=== PATIENT | female | born 1995 | race Caucasian/White ===

== ENCOUNTER 2016-10-04 18:53 | Emergency (ER) | payer OTHER ==
[2016-10-04 19:35] VITALS: TEMP 97.8
--- NOTE | 2016-10-04 21:33 | ED ---
Abdominal Pain HPI - General Chief Complaint: Abdominal Pain Stated Complaint: left side pain Time Seen by Provider: 10/04/16 20:55 Source: patient, RN notes reviewed Mode of arrival: ambulatory Limitations: no limitations - History of Present Illness Initial Comments: Patient is a 21-year-old female since emergency room for evaluation of abdominal pain. Patient is 17 weeks . Patient states that she was evaluated by her senior underwriter on 10/02/16. Patient states she began developing left lower quadrant pain on that same day. Patient states pain is getting worse. Patient states she has a confirmed IUP July. Patient denies vaginal bleeding. Patient states she can still feel her baby kicking. Patient has nausea vomiting. Patient denies fevers or chills. Patient has any pain or burning during urination, trouble urinating or blood in urine. Patient denies any recent falls or trauma to the left lower quadrant. Patient denies any constipation or diarrhea. Patient states the pain is worse when she sitting up or walking. - Related Data Home Medications Medication Instructions Recorded Confirmed Acetaminophen Tab [Tylenol Tab] 325 mg PO Q6H PRN 10/04/16 10/04/16 Allergies Allergy/AdvReac Type Severity Reaction Status Date / Time No Known Allergies Allergy Verified 10/04/16 21:03 Review of Systems ROS Statement: Those systems with pertinent positive or pertinent negative responses have been documented in the HPI. ROS Other: All systems not noted in ROS Statement are negative. Past Medical History Past Medical History: Asthma Additional Past Medical History / Comment(s): UMBILICAL HERNIA, hypoglycemia History of Any Multi-Drug Resistant Organisms: None Reported Past Surgical History: Section, Hernia Repair Past Anesthesia/Blood Transfusion Reactions: No Reported Reaction Past Psychological History: Anxiety, Depression Smoking Status: Current every day smoker Past Alcohol Use History: None Reported Additional Past Alcohol Use History / Comment(s): STARTED SMOKING AGE 14, 2008 Past Drug Use History: None Reported - Past Family History Mother Family Medical History: No Reported History General Exam - General Exam Comments Initial Comments: Sitting in exam room in no acute distress. Limitations: no limitations General appearance: alert, in no apparent distress Head exam: Present: atraumatic, normocephalic, normal inspection Eye exam: Present: normal appearance ENT exam: Present: normal exam Neck exam: Present: normal inspection Respiratory exam: Present: normal lung sounds bilaterally. Absent: respiratory distress Cardiovascular Exam: Present: regular rate, normal rhythm, normal heart sounds GI/Abdominal exam: Present: soft, tenderness (LLQ), normal bowel sounds. Absent : distended, guarding, rebound, rigid External exam: Present: normal external exam Speculum exam: Present: normal speculum exam By manual exam: Present: normal by manual exam Expanded Speculum exam: Present: cervical OS closed Extremities exam: Present: normal inspection Back exam: Present: normal inspection Neurological exam: Present: alert, oriented X3, CN II-XII intact, normal gait Psychiatric exam: Present: normal affect, normal mood Skin exam: Present: warm, dry, intact, normal color. Absent: rash Course Vital Signs 10/04/16 10/04/16 10/04/16 19:33 22:37 23:26 Temperature 97.8 F 97.8 F Pulse Rate 78 78 95 Respiratory 16 16 18 Rate Blood Pressure 102/58 112/68 116/57 O2 Sat by Pulse 99 97 98 Oximetry 10/04/16 23:29 Temperature Pulse Rate 81 Respiratory 16 Rate Blood Pressure 108/77 O2 Sat by Pulse 98 Oximetry Medical Decision Making - Medical Decision Making Patient is a 21-year-old female since emergency room for evaluation of left lower quadrant pain. Patient states about 17 weeks . Ultrasound shows no significant findings. Patient's symptoms most likely muscular. Advised patient to continue taking Tylenol. Advised patient to follow-up with her OB/ INTERACTIVE GRAPHIC DESIGNER or her senior underwriter for reevaluation in 24-48 hours. Patient states she understands everything that was discussed with her. Return parameters discussed. Case discussed with Dr. Gustafson. - Lab Data Lab Results 10/04/16 Range/Units 21:25 Urine Color Yellow Urine Appearance Cloudy H (Clear) Urine pH 6.0 (5.0-8.0) Ur Specific [place] 1.018 (1.001-1.035) Urine Protein Trace H (Negative) Urine Glucose (UA) Negative (Negative) Urine Ketones 2+ H (Negative) Urine Blood Negative (Negative) Urine Nitrate Negative (Negative) Urine Bilirubin Negative (Negative) Urine Urobilinogen <2.0 (<2.0) mg/dL Ur Leukocyte Esterase Small H (Negative) Urine RBC 5 (0-5) /hpf Urine WBC 15 H (0-5) /hpf Ur Squamous Epith Cells 35 H (0-4) /hpf Urine Mucus Few H (None) /hpf Disposition Clinical Impression: Abdominal pain affecting Disposition: HOME SELF-CARE Condition: Good Instructions: Abdominal Pain in (ED) Additional Instructions: Take Tylenol as needed for pain. Please follow-up with WORK AND FAMILY LIFE CONSULTANT or senior underwriter in 24- 48 hours for reevaluation. If any new symptom arises, symptoms worsen or fever develops, return to ER as soon as possible. Referrals: Carlos Callahan Jr, DO [Primary Care Provider] - 1-2 days Nidia Martinez MD [STAFF PHYSICIAN] - 1-2 days Time of Disposition: 23:13
[2016-10-04 21:44] LABS: Appearance,Urine Cloudy (Clear); Bilirubin,Urine Negative (Negative); Glucose,Urine (UA) Negative (Negative); Ketones,Urine 2+ (Negative); Leukocyte Esterase,Urine Small (Negative); Mucus,Urine Few /hpf; Nitrite,Urine Negative (Negative); Particle Count 9819; Protein,Urine Trace (Negative); RBC,Urine 5 /hpf (0-5); Specific Gravity,Urine 1.018 (1.001-1.035); Squamous Epithelial Cell,Urine 35 /hpf (0-4); UA Billing (MACRO vs. MICRO) MICRO; Urobilinogen,Urine <2.0 mg/dL (<2.0); WBC,Urine 15 /hpf (0-5)
--- NOTE | 2016-10-04 22:47 | US ---
EXAMINATION TYPE: US OB >= 14 wk fetus DATE OF EXAM: 10/04/2016 10:29 PM COMPARISON: None CLINICAL HISTORY: LLQ pain, growth and check LO TECHNIQUE: Transabdominal (TA) GESTATIONAL AGE / DATING Physician Established: (17 weeks/6 days) EDC: 03/08/2017 Dates by Current Scan: (17 weeks/5 days) EDC: 03/09/2017 SURVEY IUP: Single PLACENTA: posterior PREVIA: No Previa GUILLAUME: 11.1 cm Normal CERVICAL LENGTH (transabdominal: norm > 3.0cm): 4.1 cm BIOMETRY PRESENTATION: Transverse lie with head to maternal left BPD: 3.8 cm 17 weeks / 4 days HC: 14.8 cm 18 weeks / 0 days AC: 13.5 cm 19 weeks / 0 days FL: 2.4 cm 17 weeks / 1 days ESTIMATED WEIGHT IN GRAMS: 222.3 grams ESTIMATED WEIGHT IN LBS/OZS: 0 lbs. 8 oz. WEIGHT PERCENTAGE BASED ON ESTABLISHED DATES: 58.3% HC/AC: 1.1 Normal FL/AC: 17.6 HEART RATE: 143 bpm RHYTHM: Normal TECHNOLOGIST IMPRESSION: Live single IUP measuring 17 weeks 5 days. LLQ scanned. Left ovary= 2.8 x 1.8 x 1.7 cm. Prominent vessels seen in left adnexa. IMPRESSION: The ultrasound gestational age is 17 weeks 5 days and the ONOFRE is 03/09/2017. I see no complicating pro cess.
[2016-10-04 23:30] VITALS: BP 108/77; PULSE 81; RESP 16
== END 2016-10-04 23:30 | disposition home or self-care (01) ==
LOC: EC 18:53
DX: O26.92 Pregnancy related conditions, unspecified, second trimester (principal); O99.332 Smoking (tobacco) complicating pregnancy, second trimester; R10.32 Left lower quadrant pain; Z3A.17 17 weeks gestation of pregnancy
CPT/HCPCS: 76805; 81001; 99284

== ENCOUNTER 2017-06-01 16:42 | Emergency (ER) | payer OTHER ==
[2017-06-01 16:52] VITALS: BP 109/69; PULSE 83; RESP 20; TEMP 98.6
[2017-06-01] MEDS ORDERED: ACET/COD 300 MG/30 MG STARTER PACK 6 TAB BTL PO STA (17:01)
[2017-06-01] MEDS ORDERED: PENICILLIN VK 500MG STARTER 4 TAB BTL PO STA (17:01)
--- NOTE | 2017-06-01 17:03 | ED ---
ENT HPI - General Chief complaint: Dental/Oral Stated complaint: Dental pain Time Seen by Provider: 06/01/17 16:52 Source: patient, RN notes reviewed, old records reviewed Mode of arrival: ambulatory Limitations: no limitations - History of Present Illness Initial comments: 21-year-old female presents emergency room chief complaint of increased dental pain for the past 3 days. Patient states that she has poor dentition over teeth #1011 and 12. Patient states that she supposed to see a dentist on Sunday. Patient reports that the pain will radiate around her upper tooth. Patient states that she has been multiple to been to multiple dentists. In the EC that the only thing they can do to help her is to remove these teeth. Patient denies any fever or chills. Denies any poor odors or taste in her mouth. Patient states that she's had no significant swelling noted around the lower part of the jaw.Patient denies any recent fever, chills, shortness of breath, chest pain, back pain, abdominal pain, nausea vomiting, numbness or tingling, dysuria or hematuria, constipation or diarrhea, headaches or visual changes, or any other current symptoms - Related Data Home Medications Medication Instructions Recorded Confirmed Acetaminophen Tab [Tylenol Tab] 325 mg PO Q6H PRN 10/04/16 10/04/16 Previous Rx's Medication Instructions Recorded Acetaminophen-Codeine 300-30mg 1 tab PO Q6H PRN #15 tablet 06/01/17 [Tylenol #3] Penicillin V Potassium [Pen Vee K] 500 mg PO QID #40 tab 06/01/17 Allergies Allergy/AdvReac Type Severity Reaction Status Date / Time No Known Allergies Allergy Verified 06/01/17 16:52 Review of Systems ROS Statement: Those systems with pertinent positive or pertinent negative responses have been documented in the HPI. ROS Other: All systems not noted in ROS Statement are negative. Past Medical History Past Medical History: Asthma Additional Past Medical History / Comment(s): UMBILICAL HERNIA, hypoglycemia History of Any Multi-Drug Resistant Organisms: None Reported Past Surgical History: Section, Hernia Repair Past Anesthesia/Blood Transfusion Reactions: No Reported Reaction Past Psychological History: Anxiety, Depression Smoking Status: Current every day smoker Past Alcohol Use History: None Reported Past Drug Use History: None Reported - Past Family History Mother Family Medical History: No Reported History General Exam - General Exam Comments Initial Comments: This is a 21-year-old female. No acute distress. Limitations: no limitations General appearance: alert, in no apparent distress Head exam: Present: atraumatic, normocephalic, normal inspection Eye exam: Present: normal appearance, PERRL, EOMI. Absent: scleral icterus, conjunctival injection, periorbital swelling ENT exam: Present: normal exam, mucous membranes moist. Absent: normal oropharynx (Patient has poor dentition over tooth #1011 and 12. Patient has DKA and broken tooth #11. Patient presented laceration of her severe pain.) Neck exam: Present: normal inspection. Absent: tenderness, meningismus, lymphadenopathy Respiratory exam: Present: normal lung sounds bilaterally Cardiovascular Exam: Present: regular rate, normal rhythm, normal heart sounds. Absent: systolic murmur, diastolic murmur, rubs, gallop, clicks GI/Abdominal exam: Present: soft, normal bowel sounds. Absent: distended, tenderness, guarding, rebound, rigid Extremities exam: Present: normal inspection, full ROM, normal capillary refill. Absent: tenderness, pedal edema, joint swelling, calf tenderness Back exam: Present: normal inspection Neurological exam: Present: alert, oriented X3, CN II-XII intact Psychiatric exam: Present: normal affect, normal mood Course Vital Signs 06/01/17 16:51 Temperature 98.6 F Pulse Rate 83 Respiratory 20 Rate Blood Pressure 109/69 O2 Sat by Pulse 99 Oximetry Medical Decision Making - Medical Decision Making This is a 21-year-old female with chief complaint of 3 days of increased left- sided upper dental pain. Patient has poor dentition over tooth #1011 and 12. Evidence of fracture tooth #11 and multiple dental caries. Patient will be started on Pen-Vee K, given Tylenol codeine starter pack in the emergency department. Patient then relates that she is not pleased with the pain prescription that she was given. Patient is requesting stronger pain medication. I clearly discussed that she should try the Tylenol with codeine, and she can return if there is any further concerns however did write her for enough to get through the weekend. She related that she had an appointment on Sunday with her dentist. Patient continued to be irate and upset, and stormed out of the emergency department. I did discuss this with the attending physician as well as the charge nurse. Disposition Clinical Impression: Pain, dental, Dental abscess Disposition: HOME SELF-CARE Condition: Good Instructions: Dental Abscess (ED) Additional Instructions: [facility] [place] [facility] [address] [place] [address] [phone] (existing clients only) For new clients: [phone] 1st consult: $50 (includes Xrays) Usually 30% less then private dentist for visits after. [employer] [facility] [employer] Have to pay $50 for Xrays anmd rest is covered. [phone] Prescriptions: Acetaminophen-Codeine 300-30mg [Tylenol #3] 1 tab PO Q6H PRN #15 tablet PRN Reason: Pain Penicillin V Potassium [Pen Vee K] 500 mg PO QID #40 tab Referrals: Carlos Callahan Jr, DO [Primary Care Provider] - 1-2 days Time of Disposition: 17:02
== END 2017-06-01 17:20 | disposition home or self-care (01) ==
LOC: EC 16:42
DX: K04.7 Periapical abscess without sinus (principal); F17.200 Nicotine dependence, unspecified, uncomplicated
CPT/HCPCS: 99283

== ENCOUNTER 2017-12-11 16:43 | Day surgery (SDC) | payer OTHER ==
[2017-12-11 14:00] VITALS: BMI 27.3
[2017-12-11] MEDS ORDERED: LACTATED RINGERS 1,000 ML IV ONE (16:54)
[2017-12-11] MEDS ORDERED: DEXAMETHASONE SOD PHOS (MDV) 100 MG/10 ML VIAL IV ONE (17:15)
[2017-12-11] MEDS ORDERED: LIDOCAINE 1% 20 ML VIAL (10MG/ML) FOR IV START INTRADERMA ONE (17:15)
[2017-12-11] MEDS ORDERED: ONDANSETRON 4 MG/2 ML VIAL IVP ONE (17:18)
[2017-12-11] MEDS ORDERED: GENTAMICIN 80 MG in SODIUM CHLORIDE 0.9% 100 ML IVPB ONE (17:20)
[2017-12-11] MEDS ORDERED: LIDOCAINE 1% INJ 10MG/ML (20 ML MDV) ONE (17:22)
[2017-12-11] MEDS ORDERED: MIDAZOLAM 2 MG/2 ML VIAL ONE (17:22)
[2017-12-11] MEDS ORDERED: SODIUM CHLORIDE 0.9% 50 ML with ceFAZolin 2,000 MG IV ONE ×2 (17:22)
[2017-12-11] MEDS ORDERED: PROPOFOL 10 MG/ML 20 ML VIAL IV ONE (17:22)
[2017-12-11] MEDS ORDERED: fentaNYL (PF) 50 MCG/ML 2 ML AMP ONE (17:22)
[2017-12-11 17:26] LABS: Glucose,Whole Blood 90 mg/dL (75-99)
[2017-12-11] MEDS ORDERED: GENTAMICIN IV ONE ×2 (17:30)
[2017-12-11] MEDS ORDERED: GENTAMICIN IN NACL ISO-OSM PMX 80 MG in SALINE 1 100ML.BAG IVPB ONE (17:30)
[2017-12-11] MEDS ORDERED: ceFAZolin IN SWFI 2 GM/20 ML SYRINGE IVP ONE (17:30)
[2017-12-11] MEDS ORDERED: SODIUM CHLORIDE 0.9% IV ONE ×2 (17:30)
[2017-12-11] MEDS ORDERED: MEPERIDINE 50 MG/ML SYRINGE IVP ONE ×2 (18:02→18:07)
--- NOTE | 2017-12-11 18:02 | P.OP ---
Date of Procedure: 12/11/17 Preoperative Diagnosis: Bladder Foreign Body Postoperative Diagnosis: Same Procedure(s) Performed: Cystoscopy, removal of bladder foreign body Anesthesia: ANDREA Surgeon: Nayan Pettit Estimated Blood Loss (ml): 0 IV fluids (ml): 500 Pathology: other (Glass dropper) Condition: stable Disposition: PACU Indications for Procedure: The patient is a 22-year-old white female who during a sexual encounter had a glass dropper inserted into the bladder. She now comes for removal. Operative Findings: Glass dropper, removed intact. Description of Procedure: The patient was taken to the operating room and placed in the dorsolithotomy position, with her legs supported in Flaco stirrups. The external genitalia was prepped and draped sterilely. The 30 lens was used to introduce the 23- Georgian Storz cystoscopic sheath through the urethra and into the bladder under direct vision. The urethra appeared normal. Upon entering the bladder, the glass dropper was identified. It was intact in one piece. The bladder was otherwise unremarkable. Specifically, the ureteral orifices appeared normal. No tumors or other foreign bodies were seen. The dropper measured several inches in length. The bladder was distended, with the hope that the dropper could be reoriented. The beak of the cystoscope was used to orient the dropper vertically, but each time the cystoscope was reintroduced and the dropper fell to a horizontal lie within the bladder. A stone basket was then placed around the beak of the dropper, and the dropper was gently pulled out intact along with the cystoscope. The cystoscope was reintroduced into the bladder. There was no evidence of bladder injury. The bladder was emptied and the cystoscope removed. The patient tolerated the procedure well was taken to the recovery room in stable condition.
[2017-12-11] MEDS ORDERED: fentaNYL (PF) 50 MCG/ML 2 ML AMP IVP ONE (18:15)
[2017-12-11 18:16] VITALS: RESP 16
[2017-12-11 22:22] VITALS: TEMP 97.1
[2017-12-11 22:25] VITALS: BP 103/59; PULSE 73
== END 2017-12-11 20:43 | disposition home or self-care (01) ==
LOC: OR 16:43 → 5MS5E 17:48 → OR 20:43
PROVIDERS: ATTEND Urology
DX: T19.1XXA Foreign body in bladder, initial encounter (principal); J45.909 Unspecified asthma, uncomplicated; X58.XXXA Exposure to other specified factors, initial encounter; Z79.899 Other long term (current) drug therapy
CPT/HCPCS: 88300; 52310; J2250; J1580; J2175; J2405; J2001; J3010; J0690; J1100; J2704

== ENCOUNTER → 2018-04-12 | Outpatient (CLI) | payer OTHER ==
[2018-04-12 12:53] VITALS: BP 118/63; PULSE 71; TEMP 97.9; BMI 25.7
--- NOTE | 2018-04-12 13:12 | P.GSHP ---
History of Present Illness H&P Date: 04/12/18 Patient is a 22-year-old white female who states that approximately a week ago in the shower she noted that she had some discharge from the right nipple area. The nipple has become inverted and the discharge appeared to be red blood. The patient has no further discharge at this time. The patient's nipple does not continue to be inverted. The patient does not feel any masses or lumps in her breasts. The patient denies any trauma to her breast. The patient has not had any radiographic evaluation. The patient has no infection in her breast. Family history: none for cancer menarche: 11 : 4, 4 children, first at 14, breast fed: all periods regular: LMP April 06, 2018 BCP: none, hormones: none Past Surgical History: 1. 4 C sections 2. hernias umbilical Past Medical History: 1. Hypoglycemia 2. Depression Social history: Smoking: One pack per day for 7 years Alcohol: Occasionally Drugs: Negative - Constitutional Constitutional: Denies chills, Denies fever - EENT Eyes: denies decreased vision, denies pain Ears: deny: decreased hearing, tinnitus Ears, nose, mouth and throat: Denies headache, Denies sore throat - Breasts Breasts: bilateral: as per HPI - Cardiovascular Cardiovascular: Denies chest pain, Denies shortness of breath - Respiratory Respiratory: Denies cough, Denies 7 - Gastrointestinal Gastrointestinal: Denies abdominal pain, Denies diarrhea, Denies nausea, Denies vomiting - Genitourinary (Female) Genitourinary: Denies dysuria, Denies hematuria - Menstruation Menstruation: Reports period normal - Musculoskeletal Musculoskeletal: Denies myalgias - Integumentary Integumentary: Denies pruritus, Denies rash - Neurological Neurological: Denies numbness, Denies weakness - Psychiatric Psychiatric: Reports depression - Endocrine Endocrine: Denies fatigue, Denies weight change - Hematologic/Lymphatic Comment: none - Allergic/Immunologic Comment: none Past Medical History Past Medical History: Asthma Additional Past Medical History / Comment(s): UMBILICAL HERNIA 09/2015, hypoglycemia History of Any Multi-Drug Resistant Organisms: None Reported Past Surgical History: Section, Hernia Repair Additional Past Surgical History / Comment(s): x4, hernia repair x3 Past Anesthesia/Blood Transfusion Reactions: No Reported Reaction Past Psychological History: Anxiety, Depression Smoking Status: Current every day smoker Past Alcohol Use History: Occasional Additional Past Alcohol Use History / Comment(s): STARTED SMOKING AGE 162008 Past Drug Use History: None Reported - Past Family History Father Family Medical History: No Reported History Mother Family Medical History: No Reported History Medications and Allergies Home Medications Medication Instructions Recorded Confirmed Type Sertraline [Zoloft] 50 mg PO DAILY 12/11/17 04/12/18 History Allergies Allergy/AdvReac Type Severity Reaction Status Date / Time No Known Allergies Allergy Verified 12/11/17 16:52 Surgical - Exam Vital Signs Temp Pulse BP Pulse Ox 97.9 F 71 118/63 99 04/12/18 12:47 04/12/18 12:47 04/12/18 12:47 04/12/18 12:47 - General well developed, well nourished, no distress - Eyes normal ocular movement - ENT no hearing loss, no congestion - Neck no masses, trachea midline - Respiratory normal respiratory effort, clear to auscultation - Cardiovascular Rhythm: regular Heart Sounds: normal: S1, S2 - Abdomen Abdomen: soft, non tender, no guarding, no rigid, no rebound - Integumentary tattoo - Musculoskeletal normal gait, normal posture - Psychiatric oriented to time, oriented to person, oriented to place, speech is normal, memory intact Breast examination: Right breast: Multi-positional exam no dominant masses or nodules of concern, no nipple discharge even with manipulation noted bloody discharge on today's exam or any discharge, no nipple inversion at this time Right axilla: No adenopathy of concern Left breast: Multi-positional exam no dominant masses or nodules of concern , no nipple inversion at this time Left axilla: No adenopathy of concern Assessment and Plan Assessment: Impression/plan: 1. Bloody nipple discharge right breast by history 2. Depression 3. Nicotine dependence Plan: 1. Bilateral breast ultrasound 2. Continued surveillance if bloody nipple discharge recurs would see patient again immediately 3. Medical management of medical conditions 4. Follow-up after bilateral breast ultrasound At this time there is nothing to do a duct exploration on she has no further bloody discharge. We will await results of the ultrasound and if that bloody discharge recurs again we will see her at that time. CC: Dr. Callahan
== END ==
LOC: WWCWWP 11:57
PROVIDERS: ATTEND Surgery
DX: Z53.9 Procedure and treatment not carried out, unspecified reason (principal)

== ENCOUNTER → 2018-05-09 | Outpatient (CLI) | payer OTHER ==
--- NOTE | 2018-05-09 09:50 | P.PN ---
Progress Note - Text Progress Note Date: 05/09/18 Patient is a 22-year-old white female who initially presented with a complaint of right breast bloody nipple discharge. This seemed to stop spontaneously however she had 1 further episode last week. She had a bilateral breast ultrasound performed today which was negative. No dilated ducts were identified. On today's examination no bloody discharge can be elicited. On her last exam no bloody discharge was noted. At this time her results of been reviewed with radiology and it is felt that she should have a repeat right breast ultrasound in 4 months time. If the patient noticed bloody double discharge prior to then will see her again immediately. I have specifically discussed with radiology the benefit of any further studies including mammogram or MRI and they do not feel that this is necessary at the present time. We will therefore see the patient again in 4 months time unless she has repeat bloody discharge and I will see her sooner. cc: Dr. Callahan
--- NOTE | 2018-05-09 12:52 | USB ---
Reason for exam: clinical finding. Physical Findings: Nurse did not find any significant physical abnormalities on exam. US Breast BILAT Bilateral complete breast ultrasound includes all four quadrants, the retroareolar region and axilla. Finding demonstrates no cystic or solid lesion seen. No suspicious sonographic findings. Manage on a clinical basis, if uniorficeal and reproducible a ductogram could be performed. A mammogram at age 40 or sooner if clinically indicated. These results were verbally communicated with the patient and result sheet given to the patient on 05/09/18. ASSESSMENT: Negative, BI-RAD 1 RECOMMENDATION: Routine screening mammogram of both breasts at age 38.
== END | disposition home or self-care (01) ==
LOC: RADUSWWP 08:07
PROVIDERS: ATTEND Surgery
DX: N64.52 Nipple discharge (principal)

== ENCOUNTER → 2018-05-09 | Outpatient (CLI) | payer OTHER ==
[2018-05-09 09:04] VITALS: BP 112/65; PULSE 72; BMI 24.7
== END ==
LOC: WWCWWP 08:10
PROVIDERS: ATTEND Surgery
DX: Z53.9 Procedure and treatment not carried out, unspecified reason (principal)

== ENCOUNTER 2018-06-27 09:18 | Emergency (ER) | payer OTHER ==
[2018-06-27 09:24] VITALS: BP 110/73; PULSE 91; RESP 18; TEMP 98.3
[2018-06-27] MEDS ORDERED: HYDROcodone/APAP 5-325MG 1 EACH TAB PO STA (09:49)
[2018-06-27] MEDS ORDERED: ACET/COD 300 MG/30 MG STARTER PACK 6 TAB BTL PO STA (09:49)
--- NOTE | 2018-06-27 09:53 | ED ---
ENT HPI - General Chief complaint: Dental/Oral Stated complaint: Dental pain/side of face is swollen Time Seen by Provider: 06/27/18 09:33 Source: patient, RN notes reviewed Mode of arrival: ambulatory Limitations: no limitations - History of Present Illness Initial comments: This is a 23-year-old female presents emergency Department chief complaint of dental pain. She's had issues over the last 2-3 days. Patient states that she has swelling on the right side by her severe pain is in the left lower. Patient has contacted the [facility] in which she is to follow-up but cannot tolerate the pain or symptoms at this point. Patient reports no fever or chills. Patient denies sore throat, difficulty swelling, headache or dizziness. - Related Data Home Medications Medication Instructions Recorded Confirmed Sertraline [Zoloft] 50 mg PO DAILY 12/11/17 06/27/18 Benzocaine 20 % Gel [Orajel] 1 applic PO TID PRN 06/27/18 06/27/18 Ibuprofen [Motrin Ib] 200 mg PO Q4H PRN 06/27/18 06/27/18 Previous Rx's Medication Instructions Recorded Ibuprofen [Motrin] 600 mg PO Q8HR PRN #30 tab 06/27/18 Penicillin V Potassium [Pen Vee K] 500 mg PO QID #40 tablet 06/27/18 Allergies Allergy/AdvReac Type Severity Reaction Status Date / Time No Known Allergies Allergy Verified 06/27/18 09:36 Review of Systems ROS Statement: Those systems with pertinent positive or pertinent negative responses have been documented in the HPI. ROS Other: All systems not noted in ROS Statement are negative. Past Medical History Past Medical History: Asthma Additional Past Medical History / Comment(s): UMBILICAL HERNIA 09/2015, hypoglycemia History of Any Multi-Drug Resistant Organisms: None Reported Past Surgical History: Section, Hernia Repair Additional Past Surgical History / Comment(s): x4, hernia repair x3 Past Anesthesia/Blood Transfusion Reactions: No Reported Reaction Past Psychological History: Anxiety, Depression Smoking Status: Current every day smoker Past Alcohol Use History: Occasional Past Drug Use History: None Reported - Past Family History Father Family Medical History: No Reported History Mother Family Medical History: No Reported History, Diabetes Mellitus, Sleep Apnea/CPAP /BIPAP General Exam Limitations: no limitations General appearance: alert, in no apparent distress Head exam: Present: atraumatic, normocephalic, normal inspection Eye exam: Present: normal appearance, PERRL, EOMI. Absent: scleral icterus, conjunctival injection, periorbital swelling ENT exam: Present: mucous membranes moist, TM's normal bilaterally, normal external ear exam. Absent: normal oropharynx (Poor dentition, notable swelling on the right lower aspect of the cheek, dental fracture left lower) Neck exam: Present: normal inspection, full ROM. Absent: tenderness, meningismus, lymphadenopathy Respiratory exam: Present: normal lung sounds bilaterally. Absent: respiratory distress, wheezes, rales, rhonchi, stridor Cardiovascular Exam: Present: regular rate, normal rhythm, normal heart sounds. Absent: systolic murmur, diastolic murmur, rubs, gallop, clicks Course Vital Signs 06/27/18 09:22 Temperature 98.3 F Pulse Rate 91 Respiratory 18 Rate Blood Pressure 110/73 O2 Sat by Pulse 99 Oximetry Medical Decision Making - Medical Decision Making 23-year-old female presented for dental pain. Patient has a dental infection, dental fracture. She'll be treated with penicillin, Tylenol with codeine and ibuprofen. She will follow-up with dental clinic and return for any worsening symptoms Disposition Clinical Impression: Fracture of tooth, Dental abscess Disposition: HOME SELF-CARE Condition: Stable Instructions: Dental Abscess (ED) Additional Instructions: Please return to the Emergency Department if symptoms worsen or any other concerns. Prescriptions: Ibuprofen [Motrin] 600 mg PO Q8HR PRN #30 tab PRN Reason: Pain Penicillin V Potassium [Pen Vee K] 500 mg PO QID #40 tablet Is patient prescribed a controlled substance at d/c from ED?: No Referrals: Carlos Callahan Jr, DO [Primary Care Provider] - 1-2 days Time of Disposition: 09:52
== END 2018-06-27 10:05 | disposition home or self-care (01) ==
LOC: EC 09:18
DX: K04.7 Periapical abscess without sinus (principal); S02.5XXA Fracture of tooth (traumatic), initial encounter for closed fracture; F32.9 Major depressive disorder, single episode, unspecified; F41.9 Anxiety disorder, unspecified; F17.200 Nicotine dependence, unspecified, uncomplicated; Z79.899 Other long term (current) drug therapy; X58.XXXA Exposure to other specified factors, initial encounter
CPT/HCPCS: 99283

== ENCOUNTER 2018-07-31 23:31 | Emergency (ER) | payer OTHER ==
[2018-07-31 23:45] VITALS: BP 118/76; PULSE 100; RESP 20; TEMP 98.4
[2018-08-01] MEDS ORDERED: SODIUM CHLORIDE 0.9% 1,000 ML IV ONE (00:24)
[2018-08-01] MEDS ORDERED: ONDANSETRON 4 MG/2 ML VIAL IVP STA (00:24)
[2018-08-01] MEDS ORDERED: KETOROLAC 30 MG/ML 1 ML VIAL IVP STA (00:24)
[2018-08-01] MEDS ORDERED: MORPHINE SULFATE 2 MG/ML SYRINGE IVP STA (00:24)
--- NOTE | 2018-08-01 00:28 | ED ---
Back Pain HPI - General Chief Complaint: Back Pain/Injury Stated Complaint: Back Pain Time Seen by Provider: 08/01/18 00:04 Source: patient, family Limitations: no limitations - History of Present Illness Initial Comments: 23-year-old female patient presents to the emergency department today for evaluation of bilateral flank pain. Patient states the pain was present when she woke this morning from sleep. Patient states that the pain has been steadily worsening throughout the day. States it worsens with any movement, deep breathing, or coughing. Patient states the pain is radiating through to her abdomen. States it is sharp stabbing pain. She denies any fever, chills, nausea, vomiting, constipation, diarrhea, hematuria, dysuria, urinary frequency , urinary urgency. Patient denies history of similar symptoms. She denies any known injury to the back. She denies any abnormal vaginal bleeding or discharge. Patient denies any recent rash, cough, shortness breath, chest pain, numbness, tingling, dizziness, weakness, headache, visual changes, or any other complaints. - Related Data Home Medications Medication Instructions Recorded Confirmed Sertraline [Zoloft] 50 mg PO DAILY 12/11/17 07/31/18 Allergies Allergy/AdvReac Type Severity Reaction Status Date / Time No Known Allergies Allergy Verified 07/31/18 23:45 Review of Systems ROS Statement: Those systems with pertinent positive or pertinent negative responses have been documented in the HPI. ROS Other: All systems not noted in ROS Statement are negative. Past Medical History Past Medical History: Asthma Additional Past Medical History / Comment(s): UMBILICAL HERNIA 09/2015, hypoglycemia History of Any Multi-Drug Resistant Organisms: None Reported Past Surgical History: Section, Hernia Repair Additional Past Surgical History / Comment(s): x4, hernia repair x3 Past Anesthesia/Blood Transfusion Reactions: No Reported Reaction Past Psychological History: Anxiety, Depression Smoking Status: Current every day smoker Past Alcohol Use History: Occasional Past Drug Use History: None Reported - Past Family History Father Family Medical History: No Reported History Mother Family Medical History: No Reported History, Diabetes Mellitus, Sleep Apnea/CPAP /BIPAP General Exam Limitations: no limitations General appearance: alert, in no apparent distress, other (This is a well- developed, well-nourished adult female patient in mild distress related to pain. Vital signs upon presentation are temperature 98.4F, pulse 100, respirations 20, blood pressure 118/76, pulse ox 98% on room air.) Eye exam: Present: normal appearance, PERRL, EOMI. Absent: scleral icterus, conjunctival injection, periorbital swelling ENT exam: Present: normal exam, normal oropharynx, mucous membranes moist Respiratory exam: Present: normal lung sounds bilaterally. Absent: respiratory distress, wheezes, rales, rhonchi, stridor Cardiovascular Exam: Present: regular rate, normal rhythm, normal heart sounds. Absent: systolic murmur, diastolic murmur, rubs, gallop, clicks GI/Abdominal exam: Present: soft, tenderness (Left upper quadrant tenderness), normal bowel sounds. Absent: distended, guarding, rebound, rigid Back exam: Present: normal inspection, CVA tenderness (R), CVA tenderness (L) Neurological exam: Present: alert, oriented X3, CN II-XII intact Psychiatric exam: Present: normal affect, normal mood Skin exam: Present: warm, dry, intact, normal color. Absent: rash Course Vital Signs 07/31/18 23:40 Temperature 98.4 F Pulse Rate 100 Respiratory 20 Rate Blood Pressure 118/76 O2 Sat by Pulse 98 Oximetry Medical Decision Making - Medical Decision Making 23-year-old female patient presented to the emergency department today for complaints of bilateral flank pain and abdominal pain. I did see and evaluate the patient physical examination did reveal bilateral CVA tenderness. I ordered labs and medication. Patient came out of short time later crying stating that she was leaving. When questioned she stated it was related to a disagreement between her and her significant other. I did insist that she stay for testing. We discussed risks of leaving. She refused. She did sign AMA form. Disposition Clinical Impression: Flank pain Disposition: Left Against Medical Advice Condition: Undetermined Referrals: Carlos Callahan Jr, [Primary Care Provider] - 1-2 days
== END 2018-08-01 00:48 | disposition left against medical advice (07) ==
LOC: EC 23:31
DX: R10.12 Left upper quadrant pain (principal); F32.9 Major depressive disorder, single episode, unspecified; F41.9 Anxiety disorder, unspecified; F17.200 Nicotine dependence, unspecified, uncomplicated; Z79.899 Other long term (current) drug therapy; Z53.29 Procedure and treatment not carried out because of patient's decision for other reasons
CPT/HCPCS: 99283

== ENCOUNTER 2018-08-01 10:58 | Emergency (ER) | payer OTHER ==
[2018-08-01 11:02] VITALS: RESP 18
[2018-08-01] MEDS ORDERED: SODIUM CHLORIDE 0.9% 1,000 ML IV STA (11:08)
[2018-08-01] MEDS ORDERED: KETOROLAC 30 MG/ML 1 ML VIAL IVP STA (11:25)
--- NOTE | 2018-08-01 11:33 | ED ---
Back Pain HPI - General Chief Complaint: Back Pain/Injury Stated Complaint: back pain Time Seen by Provider: 08/01/18 11:08 Source: patient, RN notes reviewed Mode of arrival: ambulatory Limitations: no limitations - History of Present Illness Initial Comments: 23-year-old female presents emergency Department chief complaint of bilateral flank pain. Patient states started yesterday morning. Patient was seen in emergency department but had a leave so never had complete workup. Patient states she is given pain meds which did help. Patient denies any nausea vomiting diarrhea constipation. Patient states the pain is worse with movement. She states that she had no injury denies any prior back issues. Denies chest pain, shortness breath, dysuria, hematuria. Patient states she has not taken any recent [id number] pain meds. She does have an ALLERGY to codeine. - Related Data Home Medications Medication Instructions Recorded Confirmed Sertraline [Zoloft] 50 mg PO DAILY 12/11/17 08/01/18 Previous Rx's Medication Instructions Recorded Sulfamethox-Tmp 800-160Mg [Bactrim 1 each PO Q12HR #20 tab 08/01/18 Ds] Allergies Allergy/AdvReac Type Severity Reaction Status Date / Time codeine AdvReac Nausea Verified 08/01/18 11:06 Review of Systems ROS Statement: Those systems with pertinent positive or pertinent negative responses have been documented in the HPI. ROS Other: All systems not noted in ROS Statement are negative. Past Medical History Past Medical History: Asthma Additional Past Medical History / Comment(s): UMBILICAL HERNIA 09/2015, hypoglycemia History of Any Multi-Drug Resistant Organisms: None Reported Past Surgical History: Section, Hernia Repair Additional Past Surgical History / Comment(s): x4, hernia repair x3 Past Anesthesia/Blood Transfusion Reactions: No Reported Reaction Past Psychological History: Anxiety, Depression Smoking Status: Current every day smoker Past Alcohol Use History: Occasional Past Drug Use History: None Reported - Past Family History Father Family Medical History: No Reported History Mother Family Medical History: No Reported History, Diabetes Mellitus, Sleep Apnea/CPAP /BIPAP General Exam Limitations: no limitations General appearance: alert, in no apparent distress Head exam: Present: atraumatic, normocephalic, normal inspection Eye exam: Present: normal appearance, PERRL, EOMI. Absent: scleral icterus, conjunctival injection, periorbital swelling ENT exam: Present: normal exam, normal oropharynx, mucous membranes moist Neck exam: Present: normal inspection. Absent: tenderness, meningismus, lymphadenopathy Respiratory exam: Present: normal lung sounds bilaterally. Absent: respiratory distress, wheezes, rales, rhonchi, stridor Cardiovascular Exam: Present: normal rhythm, tachycardia, normal heart sounds. Absent: systolic murmur, diastolic murmur, rubs, gallop, clicks GI/Abdominal exam: Present: soft, tenderness (Mild upper abdominal tenderness), normal bowel sounds. Absent: distended, guarding, rebound, rigid Back exam: Present: normal inspection, full ROM, tenderness, CVA tenderness (R) , CVA tenderness (L) Neurological exam: Present: alert, oriented X3, CN II-XII intact Skin exam: Present: warm, dry, intact, normal color. Absent: rash Course Vital Signs 08/01/18 10:59 Temperature 98.1 F Pulse Rate 116 H Respiratory 18 Rate Blood Pressure 117/80 O2 Sat by Pulse 100 Oximetry Medical Decision Making - Medical Decision Making 23-year-old female presents emergency department for bilateral flank pain. Patient was found to be tachycardic, ID or pain. Patient had lab work, x-ray and urinalysis. There is evidence of leukocytosis, urinary tract infection. Urine culture was obtained. Labs and imaging were interpreted by me family updated on results and patient updated. Patient was given 2 g or Rocephin, IV hydration and pain control which symptoms and vitals have improved. Patient has not vomited she is tolerating oral intake. She'll be discharged on Bactrim for 10 days. Return parameters were discussed. - Lab Data Result diagrams: 08/01/18 11:29 08/01/18 11:29 Lab Results 08/01/18 08/01/18 08/01/18 Range/Units 11:29 11:29 11:30 WBC 15.2 H (3.8-10.6) k/uL RBC 4.56 (3.80-5.40) m/uL Hgb 12.4 (11.4-16.0) gm/dL Hct 38.5 (34.0-46.0) % MCV 84.3 (80.0-100.0) fL MCH 27.2 (25.0-35.0) pg MCHC 32.3 (31.0-37.0) g/dL RDW 15.2 (11.5-15.5) % Plt Count 306 (150-450) k/uL Neutrophils % 92 % Lymphocytes % 5 % Monocytes % 2 % Eosinophils % 1 % Basophils % 0 % Neutrophils # 13.9 H (1.3-7.7) k/uL Lymphocytes # 0.7 L (1.0-4.8) k/uL Monocytes # 0.4 (0-1.0) k/uL Eosinophils # 0.1 (0-0.7) k/uL Basophils # 0.0 (0-0.2) k/uL Sodium 140 (137-145) mmol/L Potassium 4.4 (3.5-5.1) mmol/L Chloride 107 (98-107) mmol/L Carbon Dioxide 23 (22-30) mmol/L Anion Gap 10 mmol/L BUN 10 (7-17) mg/dL Creatinine 0.64 (0.52-1.04) mg/dL Est GFR (CKD-EPI)AfAm >90 (>60 ml/min/1.73 sqM) Est GFR (CKD-EPI)NonAf >90 (>60 ml/min/1.73 sqM) Glucose 97 (74-99) mg/dL Calcium 9.8 (8.4-10.2) mg/dL Total Bilirubin 0.6 (0.2-1.3) mg/dL AST 27 (14-36) U/L ALT 22 (9-52) U/L Alkaline Phosphatase 59 (38-126) U/L Total Protein 6.9 (6.3-8.2) g/dL Albumin 4.0 (3.5-5.0) g/dL Amylase 60 (30-110) U/L Lipase 67 (23-300) U/L Urine Color Urine Appearance (Clear) Urine pH (5.0-8.0) Ur Specific [place] (1.001-1.035) Urine Protein (Negative) Urine Glucose (UA) (Negative) Urine Ketones (Negative) Urine Blood (Negative) Urine Nitrite (Negative) Urine Bilirubin (Negative) Urine Urobilinogen (<2.0) mg/dL Ur Leukocyte Esterase (Negative) Urine RBC (0-5) /hpf Urine WBC (0-5) /hpf Urine WBC Clumps (None) /hpf Ur Squamous Epith Cells (0-4) /hpf Urine Bacteria (None) /hpf Urine Mucus (None) /hpf Urine HCG, Qual Not Detected (Not Detectd) 08/01/18 Range/Units 11:30 WBC (3.8-10.6) k/uL RBC (3.80-5.40) m/uL Hgb (11.4-16.0) gm/dL Hct (34.0-46.0) % MCV (80.0-100.0) fL MCH (25.0-35.0) pg MCHC (31.0-37.0) g/dL RDW (11.5-15.5) % Plt Count (150-450) k/uL Neutrophils % % Lymphocytes % % Monocytes % % Eosinophils % % Basophils % % Neutrophils # (1.3-7.7) k/uL Lymphocytes # (1.0-4.8) k/uL Monocytes # (0-1.0) k/uL Eosinophils # (0-0.7) k/uL Basophils # (0-0.2) k/uL Sodium (137-145) mmol/L Potassium (3.5-5.1) mmol/L Chloride (98-107) mmol/L Carbon Dioxide (22-30) mmol/L Anion Gap mmol/L BUN (7-17) mg/dL Creatinine (0.52-1.04) mg/dL Est GFR (CKD-EPI)AfAm (>60 ml/min/1.73 sqM) Est GFR (CKD-EPI)NonAf (>60 ml/min/1.73 sqM) Glucose (74-99) mg/dL Calcium (8.4-10.2) mg/dL Total Bilirubin (0.2-1.3) mg/dL AST (14-36) U/L ALT (9-52) U/L Alkaline Phosphatase (38-126) U/L Total Protein (6.3-8.2) g/dL Albumin (3.5-5.0) g/dL Amylase (30-110) U/L Lipase (23-300) U/L Urine Color Yellow Urine Appearance Turbid H (Clear) Urine pH 6.0 (5.0-8.0) Ur Specific [place] 1.012 (1.001-1.035) Urine Protein 2+ H (Negative) Urine Glucose (UA) Negative (Negative) Urine Ketones Negative (Negative) Urine Blood Small H (Negative) Urine Nitrite Positive H (Negative) Urine Bilirubin Negative (Negative) Urine Urobilinogen <2.0 (<2.0) mg/dL Ur Leukocyte Esterase Large H (Negative) Urine RBC 22 H (0-5) /hpf Urine WBC >182 H (0-5) /hpf Urine WBC Clumps Many H (None) /hpf Ur Squamous Epith Cells 10 H (0-4) /hpf Urine Bacteria Many H (None) /hpf Urine Mucus Occasional H (None) /hpf Urine HCG, Qual (Not Detectd) Disposition Clinical Impression: Pyelonephritis Disposition: HOME SELF-CARE Condition: Stable Instructions: Kidney Infection (ED) Additional Instructions: Please return to the Emergency Department if symptoms worsen or any other concerns. Prescriptions: Sulfamethox-Tmp 800-160Mg [Bactrim Ds] 1 each PO Q12HR #20 tab Is patient prescribed a controlled substance at d/c from ED?: No Referrals: Carlos Callahan Jr, DO [Primary Care Provider] - 1-2 days Time of Disposition: 12:50
[2018-08-01 11:53] LABS: Basophils % (A) 0 %; Eosinophils # (A) 0.1 k/uL (0-0.7); Eosinophils % (A) 1 %; HCT 38.5 % (34.0-46.0); HGB 12.4 gm/dL (11.4-16.0); Lymphocytes # (A) 0.7 k/uL (1.0-4.8); Lymphocytes % (A) 5 %; MCH 27.2 pg (25.0-35.0); MCHC 32.3 g/dL (31.0-37.0); MCV 84.3 fL (80.0-100.0); Monocytes # (A) 0.4 k/uL (0-1.0); Monocytes % (A) 2 %; Neutrophils # (A) 13.9 k/uL (1.3-7.7); Neutrophils % (A) 92 %; Platelet Count 306 k/uL (150-450); RBC 4.56 m/uL (3.80-5.40); RDW 15.2 % (11.5-15.5); WBC 15.2 k/uL (3.8-10.6)
[2018-08-01 11:57] LABS: ALT 22 U/L (9-52); AST 27 U/L (14-36); Alkaline Phosphatase 59 U/L (38-126); Amylase 60 U/L (30-110); Anion Gap 10 mmol/L; Blood Urea Nitrogen 10 mg/dL (7-17); Calcium 9.8 mg/dL (8.4-10.2); Carbon Dioxide 23 mmol/L (22-30); Chloride 107 mmol/L (98-107); Glucose 97 mg/dL (74-99); Lipase 67 U/L (23-300); Potassium 4.4 mmol/L (3.5-5.1); Sodium 140 mmol/L (137-145); Total Bilirubin 0.6 mg/dL (0.2-1.3); Total Protein 6.9 g/dL (6.3-8.2)
--- NOTE | 2018-08-01 12:15 | XR ---
EXAMINATION TYPE: XR KUB DATE OF EXAM: 08/01/2018 COMPARISON: NONE HISTORY: Abdominal pain TECHNIQUE: One view abdominal series FINDINGS: The osseous structures are intact. The bowel gas pattern is nonspecific. There are air-fluid levels. Curvature the spine noted. Lung bases are clear. IMPRESSION: 1. Nonspecific abdomen. Occasional air-fluid level seen. Correlate for ileus or enteritis. Follow-up CT scan as clinically warranted.
[2018-08-01 12:28] LABS: Appearance,Urine Turbid (Clear); Bacteria,Urine Many /hpf; Bilirubin,Urine Negative (Negative); Blood,Urine Small (Negative); Color,Urine Yellow; Glucose,Urine (UA) Negative (Negative); Ketones,Urine Negative (Negative); Leukocyte Esterase,Urine Large (Negative); Mucus,Urine Occasional /hpf; Nitrite,Urine Positive (Negative); Protein,Urine 2+ (Negative); RBC,Urine 22 /hpf (0-5); Specific Gravity,Urine 1.012 (1.001-1.035); Squamous Epithelial Cell,Urine 10 /hpf (0-4); Urobilinogen,Urine <2.0 mg/dL (<2.0); WBC,Urine >182 /hpf (0-5)
[2018-08-01] MEDS ORDERED: cefTRIAXone 2,000 MG in SODIUM CHLORIDE 0.9% 100 ML IVPB STA (12:33)
[2018-08-01] MEDS ORDERED: traMADol 50 MG STARTER PACK 3 TAB BTL PO STA (12:51)
[2018-08-01 13:21] VITALS: BP 103/76; PULSE 77; TEMP 99.1
== END 2018-08-01 13:39 | disposition home or self-care (01) ==
LOC: EC 10:58
DX: N12 Tubulo-interstitial nephritis, not specified as acute or chronic (principal); R00.0 Tachycardia, unspecified; F41.9 Anxiety disorder, unspecified; F32.9 Major depressive disorder, single episode, unspecified; F17.200 Nicotine dependence, unspecified, uncomplicated; Z87.19 Personal history of other diseases of the digestive system; Z98.890 Other specified postprocedural states; Z79.899 Other long term (current) drug therapy; Z88.5 Allergy status to narcotic agent
CPT/HCPCS: 36415; 74018; 80053; 81001; 81025; 82150; 83690; 85025; 87086; 96361; 96365; 96375; 99284

== ENCOUNTER → 2018-12-23 | Outpatient (CLI) | payer OTHER ==
--- NOTE | 2018-12-23 11:27 | CT ---
EXAMINATION TYPE: CT pelvis w con DATE OF EXAM: 12/23/2018 COMPARISON: HISTORY: Right hip pain CT DLP: 447 mGycm Automated exposure control for dose reduction was used. TECHNIQUE: Helical acquisition of images from the lung bases through the pelvis have been completed. CONTRAST: Performed with Oral Contrast and with IV Contrast, patient injected with 100 ml mL of Isovue 300. FINDINGS: REPRODUCTIVE ORGANS: There are some cystic foci associated with the ovaries, largest on the left ab ures approximately 18 mm. Small amount of free fluid is present in the cul-de-sac which is likely phy siologic. BOWEL: No significant abnormality is seen. FREE AIR: No Free Air visible. PELVIC ADENOPATHY: None visualized. URINARY BLADDER: No significant abnormality is seen. OSSEOUS STRUCTURES: Mild disc bulge, loss of disc height present L5-S1. Mild spinal curvature could be due to positioning IMPRESSION: 0 MILD DEGENERATIVE DISC DISEASE SUSPECTED. HIP OR LUMBAR MRI MAY BE OF BENEFIT.
== END | disposition home or self-care (01) ==
LOC: RADCTMAIN 08:04
PROVIDERS: ATTEND Family Medicine
DX: M25.551 Pain in right hip (principal)
CPT/HCPCS: 72193; Q9967

== ENCOUNTER 2019-03-13 21:20 | Emergency (ER) | payer OTHER ==
[2019-03-13] MEDS ORDERED: ONDANSETRON 4 MG ODT STARTER PACK 2 TAB BTL PO STA (22:13)
[2019-03-13] MEDS ORDERED: KETOROLAC 30 MG/ML 1 ML VIAL IM STA (22:13)
[2019-03-13] MEDS ORDERED: PENICILLIN G BENZATHINE 1,200,000 UNIT/2 ML SYRINGE IM STA (22:13)
--- NOTE | 2019-03-13 22:19 | ED ---
General Adult HPI - General Chief complaint: Dental/Oral Stated complaint: Tooth infection Time Seen by Provider: 03/13/19 21:57 Source: patient, family Mode of arrival: ambulatory Limitations: no limitations - History of Present Illness Initial comments: 23-year-old female patient presents to the emergency department today for evaluation of left lower dental pain and facial swelling. Patient states that she's had dental pain for the last couple of days, did start to have swelling this morning. States she did see her primary care physician was started on amoxicillin. Patient states she did take the pain medication and the antibiotic on an empty stomach and did have vomiting shortly after. Patient denies any fevers but states she has been chilled. Patient states the facial swelling worsened tonight so she presented here for further evaluation. She denies any trismus or difficulty swallowing. Patient states she has multiple broken teeth to the area, and has been afraid to go to the dentist. Patient denies any recent rash, shortness breath, chest pain, abdominal pain, nausea, vomiting, diarrhea, constipation, back pain, numbness, tingling, dizziness, weakness, hematuria, dysuria, urinary urgency, urinary frequency, headache, visual changes, or any other complaints. - Related Data Home Medications Medication Instructions Recorded Confirmed Sertraline [Zoloft] 50 mg PO DAILY 12/11/17 08/01/18 Previous Rx's Medication Instructions Recorded Sulfamethox-Tmp 800-160Mg [Bactrim 1 each PO Q12HR #20 tab 08/01/18 Ds] Ondansetron [Zofran ODT] 4 mg PO Q8HR PRN #10 tab 03/13/19 Allergies Allergy/AdvReac Type Severity Reaction Status Date / Time codeine AdvReac Nausea Verified 03/13/19 21:49 Review of Systems ROS Statement: Those systems with pertinent positive or pertinent negative responses have been documented in the HPI. ROS Other: All systems not noted in ROS Statement are negative. Past Medical History Past Medical History: Asthma Additional Past Medical History / Comment(s): UMBILICAL HERNIA 09/2015, hypoglycemia History of Any Multi-Drug Resistant Organisms: None Reported Past Surgical History: Section, Hernia Repair Additional Past Surgical History / Comment(s): x4, hernia repair x3 Past Anesthesia/Blood Transfusion Reactions: No Reported Reaction Past Psychological History: Anxiety, Depression Smoking Status: Current every day smoker Past Alcohol Use History: Occasional Past Drug Use History: None Reported - Past Family History Father Family Medical History: No Reported History Mother Family Medical History: No Reported History, Diabetes Mellitus, Sleep Ap angela/CPAP/BIPAP General Exam Limitations: no limitations General appearance: alert, in no apparent distress, other (Physical well-develo ped, well-nourished adult female patient in no acute distress. Vital signs upon presentation are temperature 97.2F, pulse 110, respirations 20, blood pressure 104/68, pulse ox 99% on room air.) Eye exam: Present: normal appearance, PERRL, EOMI. Absent: scleral icterus, conjunctival injection, periorbital swelling ENT exam: Present: normal oropharynx, mucous membranes moist, other (Patient has multiple dental caries, multiple broken teeth to the left lower dentition, fractured down to the plan. Surrounding gingival erythema and hyperplasia. Left-sided facial swelling. No evidence of drainable abscess.). Absent: normal exam Neck exam: Present: normal inspection. Absent: tenderness, meningismus, lymphadenopathy Respiratory exam: Present: normal lung sounds bilaterally. Absent: respiratory distress, wheezes, rales, rhonchi, stridor Cardiovascular Exam: Present: regular rate, normal rhythm, normal heart sounds. Absent: systolic murmur, diastolic murmur, rubs, gallop, clicks Neurological exam: Present: alert, oriented X3, CN II-XII intact Psychiatric exam: Present: normal affect, normal mood Skin exam: Present: warm, dry, intact, normal color. Absent: rash Course Vital Signs 03/13/19 03/13/19 21:44 22:39 Temperature 97.2 F L 97.3 F L Pulse Rate 110 H 97 Respiratory 20 22 Rate Blood Pressure 104/68 129/79 O2 Sat by Pulse 99 98 Oximetry Medical Decision Making - Medical Decision Making 23-year-old female patient presented to the emergency department today for evaluation of left-sided facial swelling and dental pain. Physical examination did reveal left-sided facial swelling. Multiple broken teeth, dental caries. Gingival erythema and hyperplasia but no evidence of drainable abscess. She is afebrile. She does have prescription for amoxicillin. States that she took these on an empty stomach and did have an episode of vomiting. She'll be given a prescription for Zofran. She is given an IM dose of Toradol and penicillin here in the emergency department. She is instructed to follow-up with dentistry for recheck as soon as possible. Return parameters were discussed in detail. She verbalizes understanding and agrees with this plan. Disposition Clinical Impression: Dental abscess Disposition: HOME SELF-CARE Condition: Good Instructions (If sedation given, give patient instructions): Dental Abscess (ED) Additional Instructions: Complete antibiotic prescription in full. Apply cool compresses to the face. Follow-up with dentistry for recheck as soon as possible. Return to emergency department immediately for any new, worsening, or concerning symptoms. Prescriptions: Ondansetron [Zofran ODT] 4 mg PO Q8HR PRN #10 tab PRN Reason: Nausea Is patient prescribed a controlled substance at d/c from ED?: No Referrals: Carlos Callahan Jr, [Primary Care Provider] - 1-2 days Time of Disposition: 22:19
[2019-03-13 22:40] VITALS: BP 129/79; PULSE 97; RESP 22; TEMP 97.3
== END 2019-03-13 22:41 | disposition home or self-care (01) ==
LOC: EC 21:20
DX: K04.7 Periapical abscess without sinus (principal); R11.10 Vomiting, unspecified; F32.9 Major depressive disorder, single episode, unspecified; F41.9 Anxiety disorder, unspecified; F17.200 Nicotine dependence, unspecified, uncomplicated; Z79.899 Other long term (current) drug therapy; Z88.5 Allergy status to narcotic agent
CPT/HCPCS: 99283; 96372 ×2; J0561; J1885; S0119

== ENCOUNTER 2019-03-15 21:25 | Emergency (ER) | payer OTHER ==
[2019-03-15 21:39] VITALS: BP 109/69; PULSE 87; RESP 18; TEMP 99.4
[2019-03-15] MEDS ORDERED: KETOROLAC 30 MG/ML 1 ML VIAL IM STA (21:47)
[2019-03-15] MEDS ORDERED: HYDROcodone/APAP 5-325MG 1 EACH TAB PO STA (21:47)
--- NOTE | 2019-03-15 21:49 | ED ---
General Adult HPI - General Chief complaint: Dental/Oral Stated complaint: Dental pain Time Seen by Provider: 03/15/19 21:40 Source: patient Mode of arrival: ambulatory Limitations: no limitations - History of Present Illness Initial comments: 23-year-old female patient presents to the emergency department for her second visit for evaluation of left lower dental abscess. Patient returns today because she is having continued pain and swelling to the face. States that she did have drainage of pus from the area on , states she feels like it is building back up. She denies any fevers, states she has been chilled. Denies any nausea or vomiting. States she has been taking amoxicillin for the last 2 days. States she is taking ibuprofen for pain control but it is not helping. Denies any trismus or difficulty swallowing. Has not yet contacted dentistry. Patient denies any recent rash, shortness breath, chest pain, abdominal pain, diarrhea, constipation, back pain, numbness, tingling, dizziness, weakness, hematuria, dysuria, urinary urgency, urinary frequency, headache, visual changes, or any other complaints. - Related Data Home Medications Medication Instructions Recorded Confirmed Sertraline [Zoloft] 50 mg PO DAILY 12/11/17 08/01/18 Previous Rx's Medication Instructions Recorded Sulfamethox-Tmp 800-160Mg [Bactrim 1 each PO Q12HR #20 tab 08/01/18 Ds] Ondansetron [Zofran ODT] 4 mg PO Q8HR PRN #10 tab 03/13/19 Clindamycin HCl 300 mg PO Q6H #40 cap 03/15/19 Hydrocodone/Acetaminophen [[place] 1 tab PO Q6HR PRN #12 tab 03/15/19 5-325] Allergies Allergy/AdvReac Type Severity Reaction Status Date / Time codeine AdvReac Nausea Verified 03/15/19 21:39 Review of Systems ROS Statement: Those systems with pertinent positive or pertinent negative responses have been documented in the HPI. ROS Other: All systems not noted in ROS Statement are negative. Past Medical History Past Medical History: Asthma Additional Past Medical History / Comment(s): UMBILICAL HERNIA 09/2015, hypoglycemia History of Any Multi-Drug Resistant Organisms: None Reported Past Surgical History: Section, Hernia Repair Additional Past Surgical History / Comment(s): x4, hernia repair x3 Past Anesthesia/Blood Transfusion Reactions: No Reported Reaction Past Psychological History: Anxiety, Depression Smoking Status: Current every day smoker Past Alcohol Use History: Occasional Past Drug Use History: None Reported - Past Family History Father Family Medical History: No Reported History Mother Family Medical History: No Reported History, Diabetes Mellitus, Sleep Apnea/CPAP/BIPAP General Exam Limitations: no limitations General appearance: alert, in no apparent distress, other (This is a well- developed, well-nourished adult female patient in no acute distress. Vital signs upon presentation are temperature 99.4F, pulse 87, respirations 18, blood pressure 109/69, pulse ox 100% on room air.) Eye exam: Present: normal appearance, PERRL, EOMI. Absent: scleral icterus, conjunctival injection, periorbital swelling ENT exam: Present: normal oropharynx, mucous membranes moist, TM's normal bilaterally, other (Patient has left-sided facial swelling, multiple dental caries, multiple broken teeth down to the pulp and the left lower dentition. There is surrounding gingival erythema and hyperplasia, no evidence of drainable abscess currently.). Absent: normal exam Neck exam: Present: normal inspection. Absent: tenderness, meningismus, lymphadenopathy Respiratory exam: Present: normal lung sounds bilaterally. Absent: respiratory distress, wheezes, rales, rhonchi, stridor Cardiovascular Exam: Present: regular rate, normal rhythm, normal heart sounds. Absent: systolic murmur, diastolic murmur, rubs, gallop, clicks Neurological exam: Present: alert, oriented X3, CN II-XII intact Psychiatric exam: Present: normal affect, normal mood Skin exam: Present: warm, dry, intact, normal color. Absent: rash Course Vital Signs 03/15/19 21:34 Temperature 99.4 F Pulse Rate 87 Respiratory 18 Rate Blood Pressure 109/69 O2 Sat by Pulse 100 Oximetry Medical Decision Making - Medical Decision Making 23-year-old female patient presents to the emergency department today for evaluation of persistent facial swelling and pain. Patient has been on amoxicillin for the last 2 days for dental abscess. She has not yet made an appointment with dentistry. Been taking ibuprofen without relief. Patient will be switched from amoxicillin to clindamycin. She'll be given a short prescription for Ailey for pain control. She is instructed to continue taking the anti-inflammatory. She is instructed to call dentist on Sunday for an appointment. Return parameters were discussed in detail. She verbalizes understanding and agrees with this plan. Disposition Clinical Impression: Dental abscess Disposition: HOME SELF-CARE Condition: Good Instructions (If sedation given, give patient instructions): Dental Abscess (ED) Additional Instructions: Stop taking amoxicillin, start taking clindamycin. Take pain medication as needed and as directed. Try to take the medication with food. Follow-up with dentistry as soon as possible. Return to the emergency department immediately for any new, worsening, or concerning symptoms. Prescriptions: Clindamycin HCl 300 mg PO Q6H #40 cap Hydrocodone/Acetaminophen [Ailey 5-325] 1 tab PO Q6HR PRN #12 tab PRN Reason: Pain Is patient prescribed a controlled substance at d/c from ED?: Yes When asked, does pt state using other controlled substances?: No If prescribed controlled substance>3 days was MAPS reviewed?: Prescribed <3 Days If opioid is for acute pain is fill amount 7 days or less?: Yes If Rx opioid, was Start Talking consent form obtained?: Yes Referrals: Carlos Callahan Jr, [Primary Care Provider] - 1-2 days Time of Disposition: 21:49
== END 2019-03-15 22:05 | disposition home or self-care (01) ==
LOC: EC 21:25
DX: K04.7 Periapical abscess without sinus (principal); S02.5XXA Fracture of tooth (traumatic), initial encounter for closed fracture; F41.9 Anxiety disorder, unspecified; F32.9 Major depressive disorder, single episode, unspecified; F17.200 Nicotine dependence, unspecified, uncomplicated; Z79.899 Other long term (current) drug therapy; Z88.5 Allergy status to narcotic agent
CPT/HCPCS: 99282; 96372; J1885

== ENCOUNTER 2019-06-20 12:08 | Emergency (ER) | payer OTHER ==
[2019-06-20 12:15] VITALS: RESP 18
--- NOTE | 2019-06-20 12:59 | XR ---
EXAMINATION TYPE: XR hand complete RT DATE OF EXAM: 06/20/2019 COMPARISON: None HISTORY: Pain near right fifth metacarpal TECHNIQUE: Three-view right hand FINDINGS: No acute fracture or dislocation is evident. Joint spaces are preserved. Some soft tissue s welling is over the dorsum of the metacarpal phalangeal joint space. IMPRESSION: 1. No acute osseous abnormality. 2. Soft tissue swelling. 3. Follow-up exams can be performed 7-10 days from acute trauma for continued pain.
--- NOTE | 2019-06-20 13:00 | XR ---
EXAMINATION TYPE: XR wrist complete RT DATE OF EXAM: 06/20/2019 COMPARISON: None HISTORY: Pain hit wall TECHNIQUE: Four-view right wrist FINDINGS: No acute fracture or dislocation is evident. Soft tissues appear normal. IMPRESSION: 1. No acute osseous abnormality right wrist. 2. Follow-up exams can be performed 7-10 days from acute trauma for continued pain. 3. If there is pain at the anatomic snuff box, nuclear medicine bone scan could be performed.
--- NOTE | 2019-06-20 13:29 | ED ---
Upper Extremity HPI - General Chief Complaint: Extremity Injury, Upper Stated Complaint: hand injury Time Seen by Provider: 06/20/19 12:25 Source: patient Mode of arrival: ambulatory Limitations: no limitations - History of Present Illness Initial Comments: 24yo female presenting to the emergency department for evaluation of right hand pain. Patient states she punched a cabinet door. Patient denies hitting another individual denies abrasions or lacerations over the knuckles. Patient states that her third digit knuckle is swollen and bruised. Patient is concerned fracture presents emergency department for evaluation. Patient denies any limitations range of motion states she can flex extend at the MCP DIP and PIP joints. Patient denies any decrease in strength. Patient states she has pain towards the base of the pinky, she denies any pain at the base of the thumb. Patient denies any pain at the elbow or shoulder. Patient has no other complaints denies any other areas of injury. Remaining view system negative. - Related Data Home Medications Medication Instructions Recorded Confirmed Sertraline [Zoloft] 50 mg PO DAILY 12/11/17 08/01/18 Previous Rx's Medication Instructions Recorded Sulfamethox-Tmp 800-160Mg [Bactrim 1 each PO Q12HR #20 tab 08/01/18 Ds] Ondansetron [Zofran ODT] 4 mg PO Q8HR PRN #10 tab 03/13/19 Clindamycin HCl 300 mg PO Q6H #40 cap 03/15/19 Hydrocodone/Acetaminophen [[place] 1 tab PO Q6HR PRN #12 tab 03/15/19 5-325] Allergies Allergy/AdvReac Type Severity Reaction Status Date / Time codeine AdvReac Nausea Verified 06/20/19 12:15 Review of Systems ROS Statement: Those systems with pertinent positive or pertinent negative responses have been documented in the HPI. ROS Other: All systems not noted in ROS Statement are negative. Past Medical History Past Medical History: Asthma Additional Past Medical History / Comment(s): UMBILICAL HERNIA 09/2015, hyp oglycemia History of Any Multi-Drug Resistant Organisms: None Reported Past Surgical History: Section, Hernia Repair Additional Past Surgical History / Comment(s): x4, hernia repair x3 Past Anesthesia/Blood Transfusion Reactions: No Reported Reaction Past Psychological History: Anxiety, Depression Smoking Status: Current every day smoker Past Alcohol Use History: Occasional Past Drug Use History: None Reported - Past Family History Father Family Medical History: No Reported History Mother Family Medical History: No Reported History, Diabetes Mellitus, Sleep Apnea/CPAP/BIPAP General Exam - General Exam Comments Initial Comments: General: The patient is awake and alert, in no distress, and does not appear acutely ill. Eye: Pupils are equal, round and reactive to light, extra-ocular movements are intact. No nystagmus. There is normal conjunctiva bilaterally. No signs of icterus. Cardiovascular: There is a regular rate and rhythm. No murmur, rub or gallop is appreciated. Respiratory: Lungs are clear to auscultation, respirations are non-labored, breath sounds are equal. No wheezes, stridor, rales, or rhonchi. Musculoskeletal: Positive/of the hands bilaterally there is bruising over the third MCP joint of the right hand. No abrasions or lacerations. Patient is able to fully range at the MCP DIP and PIP joints. There is no limitations in range of motion or known flexor or extended positioning. Patient is able to make the okay fingers crossed thumbs-up sign without difficulty. Patient has full strength of the digits of the right hand equal and comparison with the left. +2 radial pulses equal bilaterally with less than 3 second capillary refill of the hands bilaterally. No evidence of a strep. Neurological: A&O x 3. CN II-XII intact grossly, There are no obvious motor or sensory deficits. Coordination appears grossly intact. Speech is normal. Skin: Skin is warm and dry and no rashes or lesions are noted. No anatomical snuffbox tenderness. Psychiatric: Cooperative, appropriate mood & affect, normal judgment. Limitations: no limitations Course Vital Signs 06/20/19 06/20/19 12:13 13:48 Temperature 99.2 F 98.0 F Pulse Rate 87 77 Respiratory 18 18 Rate Blood Pressure 96/65 113/70 O2 Sat by Pulse 99 100 Oximetry Medical Decision Making - Medical Decision Making Well-appearing 24 or female presented for right hand pain patient punched a cabinet. Patient does have bruising over the third MCP joint. There is no evidence of acute fracture. Patient is neurovascularly intact. No anatomical snuffbox tenderness. No plantars patient the elbow or shoulder joint. No evidence of tendon injury. Patient has no evidence of fight bite. No abrasions or lacerations over the MCP joint denies hitting another human. At this time do feel patient is stable for discharge with Hung bandage placement and PCP f/u. Disposition Clinical Impression: Right hand pain, Injury of right hand Disposition: HOME SELF-CARE Condition: Good Instructions (If sedation given, give patient instructions): Hand Sprain (ED), R.I.C.E. Treatment (ED) Additional Instructions: Please use medication as discussed. Please follow-up with family doctor in the next 2 days. Please return to emergency room if the symptoms increase or worsen or for any other concerns. Is patient prescribed a controlled substance at d/c from ED?: No Referrals: Carlos Callahan Jr, [Primary Care Provider] - 1-2 days Time of Disposition: 13:28
[2019-06-20 13:50] VITALS: BP 113/70; PULSE 77; TEMP 98
== END 2019-06-20 13:50 | disposition home or self-care (01) ==
LOC: EC 12:08
DX: S60.221A Contusion of right hand, initial encounter (principal); F41.9 Anxiety disorder, unspecified; F17.200 Nicotine dependence, unspecified, uncomplicated; Z79.899 Other long term (current) drug therapy; Z88.5 Allergy status to narcotic agent; W22.8XXA Striking against or struck by other objects, initial encounter
CPT/HCPCS: 99283

== ENCOUNTER 2019-10-20 19:51 | Emergency (ER) | payer OTHER ==
[2019-10-20 20:14] VITALS: RESP 18
[2019-10-20] MEDS ORDERED: ACETAMINOPHEN TAB 325 MG TAB PO STA (20:48)
[2019-10-20] MEDS ORDERED: IBUPROFEN 400 MG TAB PO STA (20:48)
[2019-10-20] MEDS ORDERED: OSELTAMIVIR 75 MG CAP PO STA (21:25)
--- NOTE | 2019-10-20 21:45 | XR ---
EXAMINATION TYPE: XR chest 2V DATE OF EXAM: 10/20/2019 COMPARISON: Prior chest x-ray 03/30/2012 HISTORY: Fever and cough TECHNIQUE: Frontal and lateral views of the chest are obtained. FINDINGS: Patient is rotated. There is bronchial wall thickening. There is no focal air space opacity , pleural effusion, or pneumothorax seen. The cardiac silhouette size is within normal limits. The osseous structures are intact. IMPRESSION: Correlate for bronchitis, follow-up as indicated
--- NOTE | 2019-10-20 21:56 | ED ---
URI HPI - General Source: patient Mode of arrival: ambulatory Limitations: no limitations <Susie So - Last Filed: 10/20/19 22:41> <Jennifer Robbins - Last Filed: 10/24/19 15:01> - General Chief Complaint: Upper Respiratory Infection Stated Complaint: Sore throat Time Seen by Provider: 10/20/19 20:49 - History of Present Illness Initial Comments: 24yo female presenting for cough. Patient chief complaint redness at check in the stated [place] patient states she does not have sore throat she presented to her primary care provider office for cough. As well as fever. Strep testing returned positive patient is prescribed amoxicillin. Patient states she has all the body aches cough. Patient concerned she has influenza. Patient denies any difficulty breathing abdominal pain diarrhea vomiting denies any rashes states childhood vaccinations are up-to-date. Patient denies any neck stiffness or headaches. Patient has not taken any antipyretics. Remaining review of systems negative upon arrival patient appears well no signs of acute distress patient is febrile (Susie So) - Related Data Home Medications Medication Instructions Recorded Confirmed Sertraline [Zoloft] 50 mg PO DAILY 12/11/17 08/01/18 Previous Rx's Medication Instructions Recorded Sulfamethox-Tmp 800-160Mg [Bactrim 1 each PO Q12HR #20 tab 08/01/18 Ds] Ondansetron [Zofran ODT] 4 mg PO Q8HR PRN #10 tab 03/13/19 Clindamycin HCl 300 mg PO Q6H #40 cap 03/15/19 Hydrocodone/Acetaminophen [[place] 1 tab PO Q6HR PRN #12 tab 03/15/19 5-325] Acetaminophen [Tylenol] 500 mg PO Q4-6H PRN 7 Days #28 tab 10/20/19 Amoxicillin 500 mg PO Q12HR 10 Days #20 cap 10/20/19 Ibuprofen 400 mg PO Q8H PRN 7 Days #21 tablet 10/20/19 Oseltamivir [Tamiflu] 75 mg PO Q12HR 5 Days #10 cap 10/20/19 Allergies Allergy/AdvReac Type Severity Reaction Status Date / Time codeine AdvReac Nausea Verified 06/20/19 12:15 Review of Systems ROS Other: All systems not noted in ROS Statement are negative. <Susie So - Last Filed: 10/20/19 22:41> ROS Other: All systems not noted in ROS Statement are negative. <Jennifer Robbins - Last Filed: 10/24/19 15:01> ROS Statement: Those systems with pertinent positive or pertinent negative responses have been documented in the HPI. Past Medical History Past Medical History: Asthma Additional Past Medical History / Comment(s): UMBILICAL HERNIA 09/2015, hypoglycemia History of Any Multi-Drug Resistant Organisms: None Reported Past Surgical History: Section, Hernia Repair Additional Past Surgical History / Comment(s): x4, hernia repair x3 Past Anesthesia/Blood Transfusion Reactions: No Reported Reaction Past Psychological History: Anxiety, Depression Smoking Status: Current every day smoker Past Alcohol Use History: Occasional Past Drug Use History: None Reported - Past Family History Father Family Medical History: No Reported History Mother Family Medical History: No Reported History, Diabetes Mellitus, Sleep Apnea/CPAP/BIPAP <Susie So - Last Filed: 10/20/19 22:41> General Exam Limitations: no limitations <Susie So - Last Filed: 10/20/19 22:41> - General Exam Comments Initial Comments: General: The patient is awake and alert, in no distress, and does not appear acutely ill. Eye: +3 mm pupils are equal, round and reactive to light, extra-ocular movements are intact. No nystagmus. There is normal conjunctiva bilaterally. No signs of icterus. No photophobia Ears, nose, mouth and throat: There are moist mucous membranes and no oral lesions. Oropharynx was not erythematous there is no tonsillar enlargement exudates or lesions. Uvula midline. Tympanic membranes are not erythematous or is no effusions bulging or retraction. No tenderness to palpation of the mastoid. No anterior cervical lymphadenopathy. Rhinorrhea, clear and bilateral nares. No tripoding, no drooling. Neck: The neck is supple, there is no tenderness or JVD. No nuchal rigidity Cardiovascular: There is a regular rate and rhythm. No murmur, rub or gallop is appreciated. Respiratory: Lungs are clear to auscultation, respirations are non-labored, breath sounds are equal. No wheezes, stridor, rales, or rhonchi. No retractions or abdominal breathing. Gastrointestinal: Soft, non-distended, non-tender abdomen without masses or organomegaly noted. There is no rebound or guarding present. Bowel sounds are unremarkable. Musculoskeletal: Normal ROM, no tenderness. Strength 5/5. Sensation intact. Radial pulses equal bilaterally 2+. Neurological: A&O x 3. CN II-XII intact grossly, There are no obvious motor or sensory deficits. Coordination appears grossly intact. Speech appears normal, no muffling. Skin: Skin is warm and dry and no rashes or lesions are noted. No extremity edema Psychiatric: Cooperative (Susie So) Course Vital Signs 10/20/19 10/20/19 20:08 22:09 Temperature 101.5 F H 101 F H Pulse Rate 63 78 Respiratory 18 18 Rate Blood Pressure 93/66 101/79 O2 Sat by Pulse 98 99 Oximetry Medical Decision Making <Susie So - Last Filed: 10/20/19 22:41> <Jennifer Robbins - Last Filed: 10/24/19 15:01> - Medical Decision Making 24yo female presents today for chief complaint of cough x 2 days. Strep + outpatient no history of sore throat. throat exam unremarkable. Influenza B +. CXR clear. Lungs clear. No respiratory distress. Oxygenating well on RA. Patient symptoms onset x 48 hours. Patient will be started on tamiflu, amoxicillin. Given antipyretics prescriptions. Patient discharged appearing well with PCP and return parameters. Agreeable care plan. (Susie So) I was available for consultation in the emergency department. The history and physical exam were done by the midlevel provider. I was consulted for this [facility]. I reviewed the case with the midlevel provider and based on their presentation of the patient, I agree with the assessment, medical decision making and plan of care as documented. Chart was dictated using [employer] dictation software. Attempts were made to correct any dictation errors however some typographical errors may persist. (Jennifer Robbins) - Lab Data Lab Results 10/20/19 Range/Units 20:14 Influenza Type A RNA Not Detected (Not Detectd) Influenza Type B (PCR) Detected H (Not Detectd) Disposition Is patient prescribed a controlled substance at d/c from ED?: No Time of Disposition: 21:55 <Susie So - Last Filed: 10/20/19 22:41> <Jennifer Robbins A - Last Filed: 10/24/19 15:01> Clinical Impression: Fever, Influenza B Disposition: HOME SELF-CARE Condition: Good Instructions (If sedation given, give patient instructions): Influenza (ED) Additional Instructions: Please use medication as discussed. Please follow-up with family doctor in the next 2 days. Please return to emergency room if the symptoms increase or worsen or for any other concerns. Prescriptions: Amoxicillin 500 mg PO Q12HR 10 Days #20 cap Ibuprofen 400 mg PO Q8H PRN 7 Days #21 tablet PRN Reason: Fever Oseltamivir [Tamiflu] 75 mg PO Q12HR 5 Days #10 cap Acetaminophen [Tylenol] 500 mg PO Q4-6H PRN 7 Days #28 tab PRN Reason: Fever Referrals: Carlos Callahan Jr, [Primary Care Provider] - 1-2 days
[2019-10-20 22:11] VITALS: BP 101/79; PULSE 78; TEMP 101
== END 2019-10-20 22:11 | disposition home or self-care (01) ==
LOC: EC 19:51
DX: J10.1 Influenza due to other identified influenza virus with other respiratory manifestations (principal); F17.200 Nicotine dependence, unspecified, uncomplicated; Z79.899 Other long term (current) drug therapy; Z88.5 Allergy status to narcotic agent
CPT/HCPCS: 71046; 87502; 99283

== ENCOUNTER 2022-03-27 23:23 | Emergency (ER) | payer OTHER ==
[2022-03-27 23:41] VITALS: TEMP 98.5
--- NOTE | 2022-03-27 23:51 | ED ---
Overdose HPI - General Chief Complaint: Overdose Stated Complaint: Overdose Time Seen by Provider: 03/27/22 23:26 Source: patient, RN notes reviewed, old records reviewed Mode of arrival: EMS Limitations: no limitations - History of Present Illness Initial Comments: This is a 26-year-old female with history of drug abuse coming in for heroin overdose. Patient also states that she uses meth. Patient has otherwise no drinking today no other complaints MD Complaint: intentional overdose -: hour(s) Intent: unwilling to say, want to escape How Overdose Was Discovered: called family/friend, family/friend present at time Context: Intentional Overdose: drug/ETOH problems Context: Accidental Overdose: wanted to get high Associated Symptoms: depression Treatments Prior to Arrival: narcan - Related Data Home Medications Medication Instructions Recorded Confirmed Sertraline [Zoloft] 50 mg PO DAILY 12/11/17 08/01/18 Previous Rx's Medication Instructions Recorded Sulfamethox-Tmp 800-160Mg [Bactrim 1 each PO Q12HR #20 tab 08/01/18 Ds] Ondansetron [Zofran ODT] 4 mg PO Q8HR PRN #10 tab 03/13/19 Hydrocodone/Acetaminophen [[place] 1 tab PO Q6HR PRN #12 tab 03/15/19 5-325] clindamycin HCL [Clindamycin HCl] 300 mg PO Q6H #40 cap 03/15/19 Acetaminophen [Tylenol] 500 mg PO Q4-6H PRN 7 Days #28 tab 10/20/19 Amoxicillin 500 mg PO Q12HR 10 Days #20 cap 10/20/19 Ibuprofen 400 mg PO Q8H PRN 7 Days #21 tablet 10/20/19 Oseltamivir [Tamiflu] 75 mg PO Q12HR 5 Days #10 cap 10/20/19 Allergies Allergy/AdvReac Type Severity Reaction Status Date / Time codeine AdvReac Nausea Verified 06/20/19 12:15 Review of Systems ROS Statement: Those systems with pertinent positive or pertinent negative responses have been documented in the HPI. ROS Other: All systems not noted in ROS Statement are negative. Past Medical History Past Medical History: Asthma Additional Past Medical History / Comment(s): UMBILICAL HERNIA 09/2015, hypoglycemia History of Any Multi-Drug Resistant Organisms: None Reported Past Surgical History: Section, Hernia Repair Additional Past Surgical History / Comment(s): x4, hernia repair x3 Past Anesthesia/Blood Transfusion Reactions: No Reported Reaction Past Psychological History: Anxiety, Depression Past Alcohol Use History: Occasional Past Drug Use History: None Reported - Past Family History Father Family Medical History: No Reported History Mother Family Medical History: No Reported History, Diabetes Mellitus, Sleep Apnea/CPAP/BIPAP General Exam Limitations: no limitations General appearance: alert, in no apparent distress Head exam: Present: atraumatic, normocephalic, normal inspection Eye exam: Present: normal appearance, PERRL, EOMI. Absent: scleral icterus, conjunctival injection, periorbital swelling ENT exam: Present: normal exam, mucous membranes moist Neck exam: Present: normal inspection. Absent: tenderness, meningismus, lymphadenopathy Respiratory exam: Present: normal lung sounds bilaterally. Absent: respiratory distress, wheezes, rales, rhonchi, stridor Cardiovascular Exam: Present: regular rate, normal rhythm, normal heart sounds. Absent: systolic murmur, diastolic murmur, rubs, gallop, clicks GI/Abdominal exam: Present: soft, normal bowel sounds. Absent: distended, tenderness, guarding, rebound, rigid Extremities exam: Present: normal inspection, full ROM, normal capillary refill. Absent: tenderness, pedal edema, joint swelling, calf tenderness Back exam: Present: normal inspection Neurological exam: Present: alert, oriented X3, CN II-XII intact Psychiatric exam: Present: normal affect, normal mood Skin exam: Present: warm, dry, intact, normal color. Absent: rash Course Vital Signs 03/27/22 23:36 Temperature 98.5 F Pulse Rate 92 Respiratory 16 Rate Blood Pressure 116/80 O2 Sat by Pulse 99 Oximetry - Reevaluation(s) Reevaluation #1: 03/27/22 23:58 Medical record is reviewed Reevaluation #2: 03/27/22 23:58 Patient remains awake and alert throughout ER stay Reevaluation #3: 03/27/22 23:58 Patient's mom does arrive to pick the patient Medical Decision Making - Medical Decision Making 26 female of heroin overdose. Currently requiring Narcan, awake and alert. Patient is able to be discharged home Disposition Clinical Impression: Accidental drug overdose, Drug overdose, Poisoning by opiates and related narcotics, other Disposition: HOME SELF-CARE Condition: Fair Instructions (If sedation given, give patient instructions): Adult Overdose (ED) Is patient prescribed a controlled substance at d/c from ED?: No Referrals: Carlos Callahan Jr, [Primary Care Provider] - 1-2 days
[2022-03-28] MEDS ORDERED: ACETAMINOPHEN TAB 500 MG TAB PO STA (00:25)
[2022-03-28] MEDS ORDERED: ONDANSETRON ODT 4 MG TAB PO STA (00:25)
[2022-03-28 01:11] VITALS: BP 123/78; PULSE 75; RESP 18
== END 2022-03-28 01:11 | disposition home or self-care (01) ==
LOC: EC 23:23
DX: T40.1X1A Poisoning by heroin, accidental (unintentional), initial encounter (principal); J45.909 Unspecified asthma, uncomplicated; Z88.5 Allergy status to narcotic agent

== ENCOUNTER 2023-11-01 10:13 | Emergency (ER) | payer OTHER ==
[2023-11-01 10:31] VITALS: RESP 18; TEMP 98.7
--- NOTE | 2023-11-01 11:20 | XR ---
EXAMINATION TYPE: XR knee complete RT DATE OF EXAM: 11/01/2023 11:08 AM CLINICAL INDICATION:Female, 28 years old with history of pain; COMPARISON: None. TECHNIQUE: XR knee complete RT; examined in Frontal, lateral and oblique projections. FINDINGS: No evidence of any acute osseous pathology, soft tissue swelling, or joint effusion is no eddie. IMPRESSION: No acute osseous pathology.
--- NOTE | 2023-11-01 11:46 | ED ---
Lower Extremity Injury HPI - General Chief Complaint: Extremity Injury, Lower Stated Complaint: Right knee swelling Time Seen by Provider: 11/01/23 10:25 Source: patient, RN notes reviewed Mode of arrival: ambulatory Limitations: no limitations - History of Present Illness Initial Comments: 28-year-old female presents emergency department complaint of right knee pain. Patient states she has had some on and off pain for last 2 weeks no trauma. States her swelling in the anterior lateral portion. Denies any paresthesias. Patient denies any prior surgeries - Related Data Home Medications Medication Instructions Recorded Confirmed Sertraline [Zoloft] 50 mg PO DAILY 12/11/17 08/01/18 Previous Rx's Medication Instructions Recorded Sulfamethox-Tmp 800-160Mg [Bactrim 1 each PO Q12HR #20 tab 08/01/18 Ds] Ondansetron [Zofran ODT] 4 mg PO Q8HR PRN #10 tab 03/13/19 Hydrocodone/Acetaminophen [[place] 1 tab PO Q6HR PRN #12 tab 03/15/19 5-325] clindamycin HCL [Clindamycin HCl] 300 mg PO Q6H #40 cap 03/15/19 Acetaminophen [Tylenol] 500 mg PO Q4-6H PRN 7 Days #28 tab 10/20/19 Amoxicillin 500 mg PO Q12HR 10 Days #20 cap 10/20/19 Ibuprofen 400 mg PO Q8H PRN 7 Days #21 tablet 10/20/19 Oseltamivir [Tamiflu] 75 mg PO Q12HR 5 Days #10 cap 10/20/19 Allergies Allergy/AdvReac Type Severity Reaction Status Date / Time codeine AdvReac Nausea Verified 11/01/23 10:24 Review of Systems ROS Statement: Those systems with pertinent positive or pertinent negative responses have been documented in the HPI. ROS Other: All systems not noted in ROS Statement are negative. Past Medical History Past Medical History: Asthma Additional Past Medical History / Comment(s): UMBILICAL HERNIA 09/2015, hypoglycemia History of Any Multi-Drug Resistant Organisms: None Reported Past Surgical History: Section, Hernia Repair Additional Past Surgical History / Comment(s): x4, hernia repair x3 Past Anesthesia/Blood Transfusion Reactions: No Reported Reaction Past Psychological History: Anxiety, Depression Smoking Status: Vaper Past Alcohol Use History: Occasional Past Drug Use History: None Reported - Past Family History Father Family Medical History: No Reported History Mother Family Medical History: No Reported History, Diabetes Mellitus, Sleep Apnea/CPAP/BIPAP General Exam Limitations: no limitations General appearance: alert, in no apparent distress Head exam: Present: atraumatic, normocephalic, normal inspection Respiratory exam: Present: normal lung sounds bilaterally. Absent: respiratory distress, wheezes, rales, rhonchi, stridor Cardiovascular Exam: Present: regular rate, normal rhythm, normal heart sounds. Absent: systolic murmur, diastolic murmur, rubs, gallop, clicks Extremities exam: Present: other (Right knee full range of motion there is mild swelling over the anterior lateral portion with mild tenderness, no laxity noted neurovascular intact) Course Vital Signs 11/01/23 11/01/23 10:21 12:07 Temperature 98.7 F Pulse Rate 109 H 106 H Respiratory 18 18 Rate Blood Pressure 123/84 116/79 O2 Sat by Pulse 98 99 Oximetry Medical Decision Making - Medical Decision Making Was pt. sent in by a medical professional or institution (Dr. PA, SERVICE STATION MANAGER, urgent care, hospital, or care home...) When possible be specific @ -No Did you speak to anyone other than the patient for history (EMS, parent, family, police, friend...)? What history was obtained from this source @ -No Did you review nursing and triage notes (agree or disagree)? Why? @ -I reviewed and agree with nursing and triage notes Were old charts reviewed (outside hosp., previous admission, EMS record, old EKG, old radiological studies, urgent care reports/EKG's, care home records)? Report findings @ -No old charts were reviewed Differential Diagnosis (chest pain, altered mental status, abdominal pain women, abdominal pain men, vaginal bleeding, weakness, fever, dyspnea, syncope, headache, dizziness, GI bleed, back pain, seizure, CVA, palpatations, mental health, musculoskeletal)? @ -[Knee pain, meniscus tear, internal derangement, EKG interpreted by me (3pts min.). @ -None X-rays interpreted by me (1pt min.). @ -X ray three-view right knee no acute fracture or acute abnormality CT interpreted by me (1pt min.). @ -None done U/S interpreted by me (1pt. min.). @ -None done What testing was considered but not performed or refused? (CT, X-rays, U/S, labs)? Why? @ -None What meds were considered but not given or refused? Why? @ -None Did you discuss the management of the patient with other professionals (antonia kumar i.e. , PA, SERVICE STATION MANAGER, lab, RT, psych nurse, social media campaign manager, order schedule clerk, teacher, combat information center officer, case management specialist)? Give summary @ -No Was smoking cessation discussed for >3mins.? @ -No Was critical care preformed (if so, how long)? @ -No Were there social determinants of health that impacted care today? How? (Homelessness, low income, unemployed, alcoholism, drug addiction, transportation, low edu. Level, literacy, decrease access to med. care, fci, rehab)? @ -No Was there de-escalation of care discussed even if they declined (Discuss DNR or withdrawal of care, Hospice)? DNR status @ -No What co-morbidities impacted this encounter? (DM, HTN, Smoking, COPD, CAD, Cancer, CVA, ARF, Chemo, Hep., AIDS, mental health diagnosis, sleep apnea, morbid obesity)? @ -None Was patient admitted / discharged? Hospital course, mention meds given and route, prescriptions, significant lab abnormalities, going to OR and other pertinent info. @ -Discharge patient will follow-up with orthopedics for further evaluation possible MRI for meniscus or ligamentous injury. X-rays were negative for acute process. Supportive treatment. Undiagnosed new problem with uncertain prognosis? @ -No Drug Therapy requiring intensive monitoring for toxicity (Heparin, Nitro, Insulin, Cardizem)? @ -No Were any procedures done? @ -No Diagnosis/symptom? @ -[Right knee pain Acute, or Chronic, or Acute on Chronic? @ -Acute Uncomplicated (without systemic symptoms) or Complicated (systemic symptoms)? @ -Uncomplicated Side effects of treatment? @ -No Exacerbation, Progression, or Severe Exacerbation? @ -No Poses a threat to life or bodily function? How? (Chest pain, USA, CT, pneumonia, PE, COPD, DKA, ARF, appy, cholecystitis, CVA, Diverticulitis, Homicidal, Suicidal, threat to staff... and all critical care pts) @ -No Disposition Clinical Impression: Knee pain, right Disposition: HOME SELF-CARE Condition: Stable Instructions (If sedation given, give patient instructions): Knee Pain (ED) Additional Instructions: Please return to the Emergency Department if symptoms worsen or any other concerns. Is patient prescribed a controlled substance at d/c from ED?: No Referrals: None,Stated [Primary Care Provider] - 1-2 days Ilir Granado DO [Doctor of Osteopathic Medicine] - 1-2 days Time of Disposition: 11:46
[2023-11-01 12:32] VITALS: BP 116/79; PULSE 106
== END 2023-11-01 12:12 | disposition home or self-care (01) ==
LOC: EC 10:13
DX: M25.561 Pain in right knee (principal); J45.909 Unspecified asthma, uncomplicated; F41.9 Anxiety disorder, unspecified; F32.A Depression, unspecified; F17.290 Nicotine dependence, other tobacco product, uncomplicated; Z79.899 Other long term (current) drug therapy; Z88.5 Allergy status to narcotic agent
CPT/HCPCS: 99283

== ENCOUNTER 2024-06-23 20:13 | Emergency (ER) | payer OTHER ==
[2024-06-23 20:23] VITALS: BP 122/75; PULSE 105; RESP 16; TEMP 98.1
== END 2024-06-23 20:50 | disposition left against medical advice (07) ==
LOC: EC 20:13
DX: Z53.21 Procedure and treatment not carried out due to patient leaving prior to being seen by health care provider (principal)
CPT/HCPCS: 87636; 99499